=== PATIENT | male | born 1985 | race Hispanic/Latino ===

== ENCOUNTER 2021-01-29 09:09 | Emergency (ER) | payer SELFPAY ==
[2021-01-29 09:50] LABS: Urine Blood Trace-lysed (Negative); Urine Glucose Negative (Negative); Urine Protein Negative (Negative); Urine Specific Gravity >=1.030 (1.005-1.030); Urine pH 5.5 (5.0-7.0)
[2021-01-29 10:04] LABS: Barbiturates NEGATIVE (NEGATIVE); Benzodiazepines NEGATIVE (NEGATIVE); Cocaine POSITIVE (NEGATIVE); METHAMPHETAM NEGATIVE (NEGATIVE); Methadone NEGATIVE (NEGATIVE); Opiates NEGATIVE (NEGATIVE); Phencyclidine NEGATIVE (NEGATIVE); THC Cannibis POSITIVE (NEGATIVE)
[2021-01-29 10:07] LABS: Protime INR 0.95
[2021-01-29 10:09] LABS: Absolute Lymphocytes (CBC) 1.1 K/uL (0.7-4.9); Basophils % 0.2 % (0-1.3); Hematocrit 45.9 % (39.6-49.0); Lymphocytes % 13.7 % (15.3-44.8); MPV 9.5 fL (7.6-11.3); RBC Red Blood Cell Count 5.02 M/uL (4.33-5.43)
[2021-01-29 10:32] LABS: ALT/SGPT 35 U/L (12-78); AST/SGOT 26 U/L (15-37); Albumin 4.1 g/dL (3.4-5.0); Alkaline Phosphatase 92 U/L (45-117); BUN Blood Urea Nitrogen 13 mg/dL (7-18); Bicarbonate 24 mmol/L (21-32); Bilirubin Direct < 0.1 mg/dL (0-0.2); Bilirubin Total 0.2 mg/dL (0.2-1.0); Glucose Level 146 mg/dL (74-106); Potassium 4.1 mmol/L (3.5-5.1); Protein, Total 7.8 g/dL (6.4-8.2); Sodium Level 145 mmol/L (136-145)
--- NOTE | 2021-01-29 11:34 | EDPHYS ---
Physician Documentation [facility] Name: Marilin Low Age: 35 yrs Sex: Male : 1985 Arrival Date: 01/29/2021 Time: 09:13 Bed 16 Private MD: ED Physician Dexter Hodge HPI: 01/29 09:27 This 35 yrs old Male presents to ER via EMS with complaints of anxiety. [facility] 09:27 The patient presents to the emergency department with anxiety. Onset: The jmm symptoms/episode began/occurred gradually. Associated signs and symptoms: Pertinent positives; anxiety. It is unknown whether or not the patient has had similar symptoms in the past. Historical: - PMHx: 09:19 Diabetes - IDDM; tr6 - Immunization history:: Adult Immunizations up to date. - Social history:: Patient uses pt reports that he uses Vicodin, but does not have a prescription , Smoking status: Patient uses street drugs, marijuana. ROS: 09:27 Constitutional: Negative for fever, chills, and weight loss, Cardiovascular: Negative jmm for chest pain, palpitations, and edema, Respiratory: Negative for shortness of breath, cough, wheezing, and pleuritic chest pain. 09:27 Psych: Positive for anxiety. 09:27 All other systems are negative. Exam: 09:27 Constitutional: This is a well developed, well nourished patient who is awake, alert, jmm and in no acute distress. Head/Face: atraumatic. Eyes: EOMI, no conjunctival erythema appreciated ENT: Moist Mucus Membranes Neck: Trachea midline, Supple Chest/axilla: Normal chest wall appearance and motion. Cardiovascular: Regular rate and rhythm. No edema appreciated Respiratory: Normal respirations, no respiratory distress appreciated Abdomen/GI: Non distended, soft Back: Normal ROM Skin: General appearance color normal MS/ Extremity: Moves all extremities, no obvious deformities appreciated, no edema noted to the lower extremities Neuro: Awake and alert, normal gait Psych: Behavior is normal, Mood is normal, Patient is cooperative and pleasant Vital Signs: 09:14 BP 141 / 86; Pulse 90; Resp 18; Pulse Ox 99% on R/A; Weight 63.5 kg; Height 6 ft. 2 in. tr6 (187.96 cm); 09:14 Body Mass Index 17.97 (63.50 kg, 187.96 cm) tr6 MDM: 09:25 Patient medically screened. [facility] 11:32 Data reviewed: vital signs, nurses notes. Counseling: I had a detailed discussion with beverly the patient and/or guardian regarding: the historical points, exam findings, and any diagnostic results supporting the discharge/admit diagnosis, lab results, the need for outpatient follow up, to return to the emergency department if symptoms worsen or persist or if there are any questions or concerns that arise at home. ED course: Patient is alert and non toxic in appearance in the ED. Advised to follow up with pcp and otherwise given strict return precautions. Patient understood and agrees with the plan of care. . 01/29 09:26 Order name: Glucose, Ancillary Testing; Complete Time: 09:32 [facility] 01/29 09:26 Order name: Acetaminophen [facility] 01/29 09:26 Order name: Basic Metabolic Panel [facility] 01/29 09:26 Order name: CBC with Diff; Complete Time: 10:37 [facility] 01/29 09:26 Order name: ETOH Level; Complete Time: 10:17 [facility] 01/29 09:26 Order name: Hepatic Function; Complete Time: 10:34 [facility] 01/29 09:26 Order name: PT-INR; Complete Time: 10:34 [facility] 01/29 09:26 Order name: Ptt, Activated; Complete Time: 10:34 [facility] 01/29 09:26 Order name: Salicylate; Complete Time: 10:25 [facility] 01/29 09:26 Order name: Urine Drug Screen; Complete Time: 10:17 [facility] 01/29 09:26 Order name: Acetaminophen Level; Complete Time: 10:34 [facility] 01/29 09:26 Order name: Basic Metabolic Panel; Complete Time: 10:34 [facility] 01/29 09:49 Order name: Urine Dipstick-Ancillary; Complete Time: 09:55 [facility] 01/29 09:26 Order name: EKG - Nurse/Tech [facility] 01/29 09:26 Order name: IV Saline Lock; Complete Time: 11:24 [facility] 01/29 09:26 Order name: Labs collected and sent; Complete Time: 11:24 [facility] 01/29 09:26 Order name: Suicide Screening ([place]); Complete Time: 11:24 [facility] 01/29 09:26 Order name: Urine Dipstick-Ancillary (obtain specimen) beverly Administered Medications: No medications were administered Disposition: 01/29/21 11:33 Discharged to Home. Impression: Anxiety disorder, unspecified. - Condition is Stable. - Discharge Instructions: Panic Attacks. - Medication Reconciliation Form, Thank You Letter, Antibiotic Education, Prescription Opioid Use form. - Follow up: Private Physician; When: 2 - 3 days; Reason: Recheck today's complaints, Continuance of care, Re-evaluation by your physician. Addendum: 01/30/2021 18:25 Co-signature as Attending Physician, Dexter Hodge MD. m a2 Signatures: Dispatcher [employer] EDMS Román Mckeon PA PA jmm Alzahri, Mohammad, MD MD ma2 Jaycee Martinez RN RN tr6 Corrections: (The following items were deleted from the chart) 01/29 12:07 11:33 01/29/2021 11:33 Discharged to Home. Impression: Anxiety disorder, unspecified. tr6 Condition is Stable. Forms are Medication Reconciliation Form, Thank You Letter, Antibiotic Education, Prescription Opioid Use. Follow up: Private Physician; When: 2 - 3 days; Reason: Recheck today's complaints, Continuance of care, Re-evaluation by your physician. beverly
--- NOTE | 2021-01-29 11:34 | ER ---
Nurse's Notes [facility] Name: Marilin Low Age: 35 yrs Sex: Male : 1985 Arrival Date: 01/29/2021 Time: 09:13 Bed 16 Private MD: Diagnosis: Anxiety disorder, unspecified Presentation: 01/29 09:14 Chief complaint: EMS states: pt was picked up by EMS from [facility]. When EMS arrived pt was tr6 on all 4s hyperventilating. En route pt was given 2mg of ativan. Coronavirus screen: Client denies travel out of the [place] in the last 14 days. Ebola Screen: Patient negative for fever greater than or equal to 101.5 degrees Fahrenheit, and additional compatible Ebola Virus Disease symptoms Patient denies exposure to infectious person. Patient denies travel to an Ebola-affected area in the 21 days before illness onset. Initial Sepsis Screen: Does the patient meet any 2 criteria? No. Patient's initial sepsis screen is negative. Does the patient have a suspected source of infection? No. Patient's initial sepsis screen is negative. Risk Assessment: Do you want to hurt yourself or someone else? Patient reports no desire to harm self or others. Onset of symptoms was January 29, 2021. 09:14 Method Of Arrival: EMS: [facility] tr6 09:14 Acuity: DILEEP 3 tr6 09:22 Chief complaint: Patient states: he has not drank alcohol in a while, but did drink tr6 last night. Triage Assessment: 09:17 General: Appears distressed, Behavior is cooperative, anxious, crying. Pain: Denies tr6 pain. EENT: No deficits noted. Neuro: No deficits noted. Cardiovascular: No deficits noted. Respiratory: No deficits noted. GI: No deficits noted. : No deficits noted. Derm: No deficits noted. Musculoskeletal: No deficits noted. Historical: - PMHx: 09:19 Diabetes - IDDM; tr6 - Immunization history:: Adult Immunizations up to date. - Social history:: Patient uses pt reports that he uses Vicodin, but does not have a prescription , Smoking status: Patient uses street drugs, marijuana. Screenin:16 Abuse screen: Denies threats or abuse. Denies injuries from another. Nutritional tr6 screening: No deficits noted. Tuberculosis screening: No symptoms or risk factors identified. Fall Risk None identified. Assessment: 09:18 General: Appears comfortable, Behavior is anxious, restless, Smells of alcohol. Pain: tr6 Complains of pain in left sided pain from previous surgery. Neuro: No deficits noted. Cardiovascular: No deficits noted. Respiratory: No deficits noted. GI: No deficits noted. : No deficits noted. EENT: No deficits noted. Derm: No deficits noted. Musculoskeletal: No deficits noted. 11:30 Reassessment: pt removed his IV and states to RN "i'm taking everything off because i'm tr6 getting ready to leave.". 12:05 Reassessment: pt walked out of room with without signing papers. PAMELLA [place] aware. tr6 Vital Signs: 09:14 BP 141 / 86; Pulse 90; Resp 18; Pulse Ox 99% on R/A; Weight 63.5 kg; Height 6 ft. 2 in. tr6 (187.96 cm); 09:14 Body Mass Index 17.97 (63.50 kg, 187.96 cm) tr6 ED Course: 09:13 Patient arrived in ED. em1 09:14 Jaycee Martinez, CAROL is Primary Nurse. tr6 09:16 Triage completed. tr6 09:16 Román Mckeon PA is PHCP. [facility] 09:16 Dexter Hodge MD is Attending Physician. [facility] 09:16 Patient has correct armband on for positive identification. Placed in gown. Bed in low tr6 position. Call light in reach. Side rails up X2. at bedside. quality assurance monitor body on. Pulse ox on. NIBP on. Door closed. Noise minimized. Warm blanket given. 09:16 No provider procedures requiring assistance completed. Maintain EMS IV. Dressing tr6 intact. Good blood return noted. Site clean \\T\\ dry. Gauge \\T\\ site: 18 L AC. 11:30 IV discontinued, intact, bleeding controlled, No redness/swelling at site. Pressure tr6 dressing applied, IV d/c by pt. Administered Medications: No medications were administered Outcome: 11:33 Discharge ordered by . [facility] 12:06 Eloped from patient exam room, after seeing physician Time discovered patient gone: January tr6 2020 at 12:00 12:07 Patient left the ED. tr6 Signatures: Román Mckeon PA PA jmm Martinez, Eric em1 Jaycee Martinez RN RN tr6 Corrections: (The following items were deleted from the chart) :22 09:14 Chief complaint: EMS states: pt was picked [facility] by EMS from [facility]. When EMS arrived pt tr6 was on all 4s hyperventilating tr6
[2021-01-29 12:14] VITALS: BP 141/86; O2SAT 99
== END 2021-01-29 12:07 | disposition home or self-care (01) ==
LOC: ER 09:09
DX: F41.9 Anxiety disorder, unspecified (principal)
CPT/HCPCS: 36415; 80048; 80076; 80307; 80320; 80329; 81003; 82947; 85025; 85610; 85730; 99284